=== PATIENT | male | born 1975 | race Caucasian/White ===

== ENCOUNTER 2016-06-17 23:52 | Emergency (ER) | payer BC ==
[~2016-06-17] VITALS: Ht 185.4 cm; Wt 114.1 kg
[2016-06-18 00:41] LABS: HEMATOCRIT 42.9 % (38.0-50.0); MCH 30.9 PG (29.0-34.0); MCHC 35.4 G/DL (30.0-36.0); MCV 87.2 FL (86-99); MEAN PLAT.VOLUME 9.4 uM^3 (9.0-12.4); PLATELET COUNT 252 K/uL (156-360); RBC DIS.WIDTH-CV 12.3 % (11.8-14.6); RBC DIS.WIDTH-SD 38.9 % (39-53); RED BLOOD COUNT 4.92 M/uL (4.00-5.50); WHITE BLOOD COUNT 6.6 K/uL (4.1-10.2)
[2016-06-18 01:19] LABS: ADD MIUA? NO; BILIRUBIN NEGATIVE; BLOOD NEGATIVE; COLOR STRAW ((YELLOW)); GLUCOSE (STRIP) >=500; KETONES NEGATIVE; LEUKOCYTES NEGATIVE; NITRITE NEGATIVE; PROTEIN (STRIP) NEGATIVE; SPECIFIC GRAVITY 1.008 (1.000-1.030); UCUL ADDED? NO; UROBILINOGEN 0.2 MG/DL (0.2-1.0)
[2016-06-18 01:21] LABS: CHLORIDE 102 mEq/L (99-109); SODIUM 136 mEq/L (136-147)
[2016-06-18 01:23] LABS: GLUCOSE 201 mg/dL (70-99)
[2016-06-18 01:24] LABS: ANION GAP 13 MEQ/L (2-14)
[2016-06-18 01:25] LABS: TOTAL BILIRUBIN 0.5 mg/dL (0.0-1.0)
[2016-06-18 01:27] LABS: ALKALINE PHOSPHATASE 89 IU/L (3-129); GFR ESTIMATE (CALCULATED) > 59 mL/min/
[2016-06-18 01:28] LABS: UREA NITROGEN (BUN) 8 mg/dL (9-23)
[2016-06-18 01:30] LABS: LIPASE 36 U/L (1.0-51.0)
[2016-06-18] MEDS ORDERED: MOTRIN800 MG PO (04:25)
[2016-06-18 04:45] VITALS: BP 150/93
== END 2016-06-18 04:51 | disposition home or self-care (01) ==
LOC: EME 23:52
DX: R10.12 Left upper quadrant pain (principal); Z87.891 Personal history of nicotine dependence
CPT/HCPCS: 74176; 80053; 81003; 83690; 85027; 99281; 99284; J1885; J7030

== ENCOUNTER 2016-09-02 18:26 | Emergency (ER) | payer BC ==
[~2016-09-02] VITALS: Ht 182.9 cm; Wt 111.9 kg
[~2016-09-02 18:26] MED LIST: MOTRIN800 MG PO
[2016-09-02 18:51] LABS: HEMATOCRIT 42.8 % (38.0-50.0); MCH 30.8 PG (29.0-34.0); MCHC 35.5 G/DL (30.0-36.0); MCV 86.6 FL (86-99); MEAN PLAT.VOLUME 9.4 uM^3 (9.0-12.4); PLATELET COUNT 245 K/uL (156-360); RBC DIS.WIDTH-CV 12.1 % (11.8-14.6); RBC DIS.WIDTH-SD 38.4 % (39-53); RED BLOOD COUNT 4.94 M/uL (4.00-5.50); WHITE BLOOD COUNT 8.3 K/uL (4.1-10.2)
[2016-09-02 18:59] LABS: CHLORIDE 103 mEq/L (99-109); SODIUM 138 mEq/L (136-147)
[2016-09-02 19:01] LABS: GLUCOSE 164 mg/dL (70-99)
[2016-09-02 19:03] LABS: ANION GAP 10 MEQ/L (2-14)
[2016-09-02 19:05] LABS: GFR ESTIMATE (CALCULATED) > 59 mL/min/
[2016-09-02 19:06] LABS: UREA NITROGEN (BUN) 6 mg/dL (9-23)
[2016-09-02 22:22] VITALS: BP 186/105
== END 2016-09-02 22:23 | disposition home or self-care (01) ==
LOC: RME 18:26 → EME 18:26 → RME 22:23
DX: L03.115 Cellulitis of right lower limb (principal); S80.811A Abrasion, right lower leg, initial encounter; W21.89XA Striking against or struck by other sports equipment, initial encounter; Y93.64 Activity, baseball; Z87.891 Personal history of nicotine dependence
CPT/HCPCS: 80048; 85027; 93971; 99281; 99285; J3370

== ENCOUNTER 2017-04-22 22:33 | Observation (INO) | payer BC ==
[~2017-04-22] VITALS: Ht 182.9 cm; Wt 110.4 kg
[2017-04-22 22:56] LABS: HEMATOCRIT 43.9 % (38.0-50.0); HEMOGLOBIN 16.2 G/DL (12.5-16.6); MCH 31.3 PG (29.0-34.0); MCHC 36.9 G/DL (30.0-36.0); MCV 84.9 FL (86-99); PLATELET COUNT 259 K/uL (156-360); RBC DIS.WIDTH-SD 37.1 % (39-53); RED BLOOD COUNT 5.17 M/uL (4.00-5.50); WHITE BLOOD COUNT 13.1 K/uL (4.1-10.2)
[2017-04-22 23:06] LABS: CHLORIDE 100 mEq/L (99-109); POTASSIUM 3.9 mEq/L (3.7-5.4); SODIUM 136 mEq/L (136-147)
[2017-04-22 23:07] LABS: INTER. NORMALIZED RATIO 1.1; MAGNESIUM 1.9 mg/dL (1.3-2.7)
[2017-04-22 23:08] LABS: GLUCOSE 243 mg/dL (70-99)
[2017-04-22 23:09] LABS: D-DIMER ELISA < 150.00 ng/mLDDU (<230); PTT 25.1 SEC (25-37)
[2017-04-22 23:12] LABS: CREATININE 1.2 mg/dL (0.6-1.3); GFR ESTIMATE (CALCULATED) > 59 mL/min/ (58.99-99999); PHOSPHORUS 1.3 mg/dL (2.5-4.9)
[2017-04-22 23:13] LABS: UREA NITROGEN (BUN) 13 mg/dL (9-23)
[2017-04-22 23:17] LABS: TROP-I INTERPRETATION NEGATIVE; TROPONIN-I < 0.01 ng/mL (0.0-0.30)
[2017-04-23 02:03] LABS: APPEARANCE CLEAR ((CLEAR)); BILIRUBIN NEGATIVE; BLOOD SMALL; COLOR YELLOW ((YELLOW)); GLUCOSE (STRIP) >=500; KETONES 20; LEUKOCYTES NEGATIVE; NITRITE NEGATIVE; PROTEIN (STRIP) 30; SPECIFIC GRAVITY 1.029 (1.000-1.030); UROBILINOGEN 0.2 MG/DL (0.2-1.0)
[2017-04-23 02:18] LABS: BACTERIA NONE SEEN /HPF; EPITHELIAL CELLS RARE /HPF; HYALINE CASTS 0-5 /LPF; MUCUS TRACE /LPF; RED BLOOD CELLS 0-5 /HPF (0-5); UCUL ADDED? NO; WHITE BLOOD CELLS 0-5 /HPF (0-5)
[2017-04-23 04:43] VITALS: BP 176/91
[2017-04-23 06:11] LABS: TROP-I INTERPRETATION NEGATIVE; TROPONIN-I < 0.01 ng/mL (0.0-0.30)
[2017-04-23 08:11] VITALS: BP 150/85
[2017-04-23] MEDS ORDERED: PREDNISONE20 MG PO ×2 (11:23→11:25)
[2017-04-23] MEDS ORDERED: FLUTICASONE PRO16 GM BOTH NARES (11:23)
[2017-04-23] MEDS ORDERED: LITHIUM CARBON450 MG PO (11:24)
[2017-04-23] MEDS ORDERED: DICLOFENAC SODI75 MG PO (11:24)
[2017-04-23] MEDS ORDERED: ADVIL200 MG PO (11:26)
[2017-04-23] MEDS ORDERED: BIOFREEZE TP (11:26)
[2017-04-23] MEDS ORDERED: ZYRTEC10 M3 PO (11:26)
[2017-04-23 11:30] VITALS: BP 157/95
[2017-04-23 11:47] LABS: BASOPHIL (%) 0.3 % (0-1); EOSINOPHIL (%) 0.5 % (0-5); EOSINOPHIL COUNT 0.1 K/uL (0-0.3); HEMATOCRIT 41.1 % (38.0-50.0); HEMOGLOBIN 14.5 G/DL (12.5-16.6); IMMATURE GRANULOCYTE (%) 0.5 % (0.0-0.7); LYMPHOCYTE (%) 28.3 % (15-42); LYMPHOCYTE COUNT 2.7 K/uL (1.0-2.8); MCHC 35.3 G/DL (30.0-36.0); MCV 87.8 FL (86-99); MONOCYTE (%) 9.7 % (3-12); MONOCYTE COUNT 0.9 K/uL (0-0.8); NEUTROPHIL (%) 60.7 % (45-76); NEUTROPHIL COUNT 5.8 K/uL (1.8-6.4); PLATELET COUNT 229 K/uL (156-360); RBC DIS.WIDTH-CV 12.6 % (11.8-14.6); RBC DIS.WIDTH-SD 39.8 % (39-53); RED BLOOD COUNT 4.68 M/uL (4.00-5.50); WHITE BLOOD COUNT 9.5 K/uL (4.1-10.2)
[2017-04-23 12:05] LABS: TROP-I INTERPRETATION NEGATIVE; TROPONIN-I < 0.01 ng/mL (0.0-0.30)
[2017-04-23 12:08] LABS: CHLORIDE 99 MEQ/L (99-109); CREATININE 0.9 MG/DL (0.6-1.3); GFR ESTIMATE (CALCULATED) > 59 mL/min/ (58.99-99999); GLUCOSE 167 mg/dL (70-99); MAGNESIUM 1.8 mg/dl (1.3-2.7); PHOSPHORUS 3.2 mg/dL (2.5-4.9); POTASSIUM 3.8 MEQ/L (3.7-5.4); SODIUM 139 MEQ/L (136-147); UREA NITROGEN (BUN) 10 mg/dL (9-23)
[2017-04-23 15:14] VITALS: BP 147/85
[2017-04-23] MEDS ORDERED: AMLODIPINE BESYL5 MG PO (15:29)
[2017-04-23] MEDS ORDERED: VENTOLIN HFA18 GM IH (15:29)
[2017-04-23] MEDS ORDERED: METFORMIN HCL500 MG PO (15:29)
[2017-04-23 21:04] LABS: THYROTROPIN (TSH) 1.5 MIU/L (0.4-5.5)
== END 2017-04-23 16:55 | disposition home or self-care (01) ==
LOC: EME → EDBD 22:33 → EME 22:33 → EDOF 04-23 03:02 → 5WEST 04-23 03:02 → EDOF 04-23 03:02 → ENRESERV 04-23 03:05 → 5WEST 04-23 04:37
PROVIDERS: Emergency Medicine; Hospitalist; Internal Medicine; Physician Assistant
DX: R00.2 Palpitations (principal); R00.0 Tachycardia, unspecified; E11.65 Type 2 diabetes mellitus with hyperglycemia; E83.39 Other disorders of phosphorus metabolism; I10 Essential (primary) hypertension; I34.0 Nonrheumatic mitral (valve) insufficiency; D72.829 Elevated white blood cell count, unspecified; R06.2 Wheezing; Z87.891 Personal history of nicotine dependence; M54.40 Lumbago with sciatica, unspecified side; Z79.82 Long term (current) use of aspirin; Z79.4 Long term (current) use of insulin
CPT/HCPCS: 71046; 80048; 81003; 82948; 83036; 83735; 84100; 84443; 84484; 85025; 85027; 85379; 85610; 85730; 93005; 93306; 99281; 99285; G0378; J1644; J1815; J7030; J7512